=== PATIENT | male | born 1935 | race Caucasian/White ===

== ENCOUNTER 2016-11-07 20:27 | Emergency (ER) | payer SELFPAY ==
[2016-11-07 21:21] LABS: HEMOGLOBIN 12.5 g/dL (13.7-17.5); MEAN CORPUSCULAR HEMOGLOBIN 30.2 pg (27.0-33.0); MEAN CORPUSCULAR HGB CONC 31.3 g/dL (32.0-36.0); MEAN CORPUSCULAR VOLUME 96.9 fL (79-92); PLATELET COUNT 287 x10_3/uL (163-337); RED BLOOD COUNT 4.13 x10_6/uL (4.6-6.1); WHITE BLOOD COUNT 8.1 x10_3/uL (4.2-9.1)
== END 2016-11-07 22:13 | disposition home or self-care (01) ==
LOC: ER 20:27
PROVIDERS: General Practice
DX: K57.30 Diverticulosis of large intestine without perforation or abscess without bleeding (principal); K92.1 Melena; Z79.899 Other long term (current) drug therapy
CPT/HCPCS: 36415; 85025; 99284; 99285-25; G0328-QW

== ENCOUNTER 2017-01-27 | Emergency (ER) | payer MEDICARE ==
[2017-01-27 00:39] LABS: BASO % 0.1 % (0.2-1.2); EOS # 0.2 10_X3_uL (0.0-0.5); EOS % 2.2 % (0.8-7.0); GRAN # 6.6 10_X3_uL (1.8-5.4); GRAN % 69.9 % (34.0-67.9); HEMATOCRIT 34.7 % (40-51); HEMOGLOBIN 11.3 g/dL (13.7-17.5); LYMPH # 1.9 10_X3_uL (1.3-3.6); LYMPH % 19.7 % (21.8-53.1); MEAN CORPUSCULAR HGB CONC 32.6 g/dL (32.0-36.0); MEAN CORPUSCULAR VOLUME 95.3 fL (79-92); MEAN PLATELET VOLUME 9.6 fl (7.5-11.5); MONO # 0.8 10_X3_uL (0.3-0.8); MONO % 8.1 % (5.3-12.2); PLATELET COUNT 279 x10_3/uL (163-337); RED BLOOD COUNT 3.64 x10_6/uL (4.6-6.1); RED CELL DISTRIBUTION WIDTH 14.4 % (11.6-14.4); WHITE BLOOD COUNT 9.4 x10_3/uL (4.2-9.1)
[2017-01-27 00:50] LABS: ALBUMIN 3.2 gm/dL (3.4-5.0); ALKALINE PHOSPHATASE 89 U/L (50-136); ALT/SGPT 5 U/L (7.53-40.17); AMYLASE 25 U/L (15.62-74.58); AST/SGOT 14 U/L (6.66-35.34); BILIRUBIN,TOTAL 0.43 mg/dL (0.0-1.0); CALCIUM 8.6 mg/dL (8.7-10.7); CARBON DIOXIDE 25 mmol/L (21-32); CREATININE 1.2 mg/dL (0.6-1.3); GLUCOSE,RANDOM 245 mg/dL (70-99); LIPASE 16 U/L (6.75-60.75); POTASSIUM 4.1 mmol/L (3.5-5.1); SODIUM 134 mmol/L (136-145); TOTAL PROTEIN 6.9 gm/dL (6.4-8.2)
[2017-01-27 00:52] LABS: BLOOD UREA NITROGEN 19 mg/dL (7-18)
== END 2017-01-27 03:55 | disposition home or self-care (01) ==
LOC: ER
PROVIDERS: Emergency Medicine
DX: R10.9 Unspecified abdominal pain (principal); R19.7 Diarrhea, unspecified; I95.9 Hypotension, unspecified; Z93.3 Colostomy status; Z85.038 Personal history of other malignant neoplasm of large intestine; Z90.49 Acquired absence of other specified parts of digestive tract; Z79.4 Long term (current) use of insulin; Z88.8 Allergy status to other drugs, medicaments and biological substances
CPT/HCPCS: 36415; 71250; 80053; 82150; 83690; 85025; 96361; 96374; 99284; 99284-25